=== PATIENT | male | born 1935 | race Caucasian/White ===

== ENCOUNTER 2021-07-19 08:21 | Day surgery (SDC) | payer MEDICARE ==
[~2021-07-19] VITALS: Ht 177.8 cm; Wt 93.5 kg
[2021-07-19 09:08] VITALS: BP 134/82; PULSE 67; TEMP 97.2
[2021-07-19] MEDS ORDERED: NORVASC 5MG5 MG/TAB PO (09:13)
[2021-07-19] MEDS ORDERED: NATURAL C500 MG PO (09:13)
[2021-07-19] MEDS ORDERED: ASPIRIN 81M81 MG/TA2 PO (09:14)
[2021-07-19] MEDS ORDERED: COREG 3.123.125 MG/T PO (09:14)
[2021-07-19] MEDS ORDERED: COZAAR 25MG25 MG/TAB PO (09:15)
[2021-07-19] MEDS ORDERED: LINZESS72 MCG PO (09:15)
[2021-07-19] MEDS ORDERED: MEVACOR10 MG PO (09:16)
[2021-07-19] MEDS ORDERED: GLUCOPHAGE500 MG/TAB PO (09:16)
[2021-07-19] MEDS ORDERED: MULTI-VITAMIN W1 TA1 PO (09:17)
[2021-07-19 10:50] VITALS: BP 91/64; PULSE 58; TEMP 97.1
--- NOTE | 2021-07-19 10:50 | NUR ---
PATIENT TRANSPORTED PER CART FROM GI SUITE TO BAY 1 ACCOMPANIED BY PRO RN. PATIENT AMBULATED FROM CART TO CHAIR WITH SLOW STEADY GAIT. MONITORS APPLIED. VSS ON ROOM AIR. PATIENT TALKS WITH STAFF. IN ROOM VERBAL REPORT RECEIVED. [id number] PATIENT GIVEN PEPSI AND MUFFIN.
[2021-07-19 11:00] VITALS: BP 134/73; PULSE 56
[2021-07-19 11:15] VITALS: BP 140/81; PULSE 52
--- NOTE | 2021-07-19 11:15 | NUR ---
VSS ON ROOM AIR. PATIENT TOLERATED FOOD AND DRINK. DOCTOR SPEAKS WITH PATIENT.
[2021-07-19 11:20] VITALS: BP 111/85; PULSE 59
--- NOTE | 2021-07-19 11:25 | NUR ---
VSS ON ROOM AIR. PATIENT DENIES DISCOMFORT AND NAUSEA. 1126 DISCHARGE INSTRUCTIONS GIVEN VERBAL AND DISCHARGE PACKET GIVEN TO PATIENT. QUESTIONS ANSWERED AND PATIENT VOICED UNDERSTANDING. PATIENT CHANGES INTO STREET CLOTHES. VOICED UNDERSTANDING. 1130 PATIENT DISCHARGED PER WHEEL CHAIR ACCOMPANIED BY AMB RN TO PRIVATE VECHILE DRIVEN BY FAMILY
== END 2021-07-19 11:30 | disposition home or self-care (01) ==
LOC: SDCO 08:21
DX: D12.5 Benign neoplasm of sigmoid colon (principal); Z86.010 Personal history of colon polyps; Z85.038 Personal history of other malignant neoplasm of large intestine; K59.00 Constipation, unspecified; K57.30 Diverticulosis of large intestine without perforation or abscess without bleeding; Z98.0 Intestinal bypass and anastomosis status; Z79.82 Long term (current) use of aspirin; Z79.899 Other long term (current) drug therapy; N40.0 Benign prostatic hyperplasia without lower urinary tract symptoms; E11.22 Type 2 diabetes mellitus with diabetic chronic kidney disease; N18.30 Chronic kidney disease, stage 3 unspecified; I25.10 Atherosclerotic heart disease of native coronary artery without angina pectoris; E78.5 Hyperlipidemia, unspecified; I10 Essential (primary) hypertension; Z85.828 Personal history of other malignant neoplasm of skin
CPT/HCPCS: J2704; J7030

== ENCOUNTER 2023-03-03 05:33 | Day surgery (SDC) | payer MEDICARE ==
[~2023-03-03] VITALS: Ht 172.7 cm; Wt 90.4 kg
[2023-03-03] VITALS (10 sets, daily range): BP systolic 114–155; BP diastolic 70–86; PULSE 58–69; TEMP 96.9–97.4
[~2023-03-03 05:33] MED LIST: ASPIRIN 81M81 MG/TA2 PO; COREG 3.123.125 MG/T PO; COZAAR 25MG25 MG/TAB PO; GLUCOPHAGE500 MG/TAB PO; LINZESS72 MCG PO; MEVACOR10 MG PO; MULTI-VITAMIN W1 TA1 PO; NATURAL C500 MG PO; NORVASC 5MG5 MG/TAB PO
[2023-03-03] MEDS ORDERED: COREG 6.256.25 MG/TA PO (06:31)
[2023-03-03] MEDS ORDERED: LINZESS145CAP PO (06:36)
--- NOTE | 2023-03-03 17:11 | NUR ---
PATIENT BROUGHT TO FLOOR AT APPROXIMATELY 1105. PATIENT DROWSY, BUT AROUSABLE. AQUACELL TO LEFT SHOULDER, CDI. ABDUCTOR SLING TO LEFT SHOULDER. PATIENT DENIES PAIN. POST OPS RUNNING. CALL LIGHT IN REACH.
--- NOTE | 2023-03-03 17:12 | NUR ---
PATIENT HAVING NAUSEA/VOMITING. ZOFRAN ADMINISTERED. PATIENT CLEANED UP, NEW GOWN APPLIED. PATIENT UP WITH THERAPY, WALKED TO BATHROOM AND SAT UP IN CHAIR TO AWAIT DINNER. CALL LIGHT IN REACH.
--- NOTE | 2023-03-03 20:59 | NUR ---
Called Nikia, the PA d/t patient didn't eat his supper and has sliding scale insulin, he's due for 2 units, Nikia ordered to give it.
--- NOTE | 2023-03-03 21:01 | NUR ---
Patient A/O, head to toe assessment done, see shift assessment, denies pain or discomfort at this time, with abductor sling to left shoulder, INT to right wrist, denies further needs, call light and personal items within reach, will continue to monitor.
[2023-03-04 00:24] VITALS: BP 146/75; PULSE 70; TEMP 97.8
--- NOTE | 2023-03-04 00:26 | NUR ---
Patient still complaining of nausea, IV zofran given, patient refused to wear his SCD's at this time.
[2023-03-04 03:52] VITALS: BP 132/62; PULSE 67; TEMP 97.9
[2023-03-04 06:58] LABS: HEMATOCRIT 42.9 % (42.0-52.0); HEMOGLOBIN 15.4 g/dl (13.5-18.0); MEAN CELL VOLUME 92 fl (80.0-100.0); MEAN CORPUSCULAR HEMOGLOBIN 33 pg (27-31); MEAN CORPUSCULAR HGB CONC 36 g/dl (33.0-37.0); MEAN PLATELET VOLUME 10.2 fl (7.4-10.4); PLATELET COUNT 200 K/mm3 (130-400); RED BLOOD COUNT 4.68 M/mm3 (4.20-5.60); REDCELL DISTRIBUTION WIDTH-CV 12.9 % (11.5-14.5)
[2023-03-04 07:10] LABS: CALCIUM 8.3 mg/dL (8.4-10.2); CREATININE, serum 1.14 mg/dL (0.72-1.25); POTASSIUM 4.1 mmol/L (3.5-4.5)
[2023-03-04 07:54] VITALS: BP 129/64; PULSE 65; TEMP 98
--- NOTE | 2023-03-04 09:47 | NUR ---
REVIEWED DISCHARGE WITH PATIENT, QUESTIONS ANSWERED. PT CALLING FAMILY FOR RIDE.
--- NOTE | 2023-03-04 09:58 | NUR ---
PT LEFT UNIT AMBULATORY.
--- NOTE | 2023-03-04 10:15 | NUR ---
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 enjoyed visiting with Millicent and wishing him well and Keeping him in her prayers.
== END 2023-03-04 09:59 | disposition home or self-care (01) ==
LOC: SDCO 05:33 → SURG 11:08 → SDCO 03-04 09:59
PROVIDERS: Orthopaedic Surgery
DX: M19.012 Primary osteoarthritis, left shoulder (principal); R11.2 Nausea with vomiting, unspecified; E11.22 Type 2 diabetes mellitus with diabetic chronic kidney disease; I12.9 Hypertensive chronic kidney disease with stage 1 through stage 4 chronic kidney disease, or unspecified chronic kidney disease; N18.30 Chronic kidney disease, stage 3 unspecified; Z66 Do not resuscitate; I25.10 Atherosclerotic heart disease of native coronary artery without angina pectoris; I25.2 Old myocardial infarction; E78.5 Hyperlipidemia, unspecified; K58.1 Irritable bowel syndrome with constipation; Z85.828 Personal history of other malignant neoplasm of skin; Z95.1 Presence of aortocoronary bypass graft; Z79.84 Long term (current) use of oral hypoglycemic drugs; Z79.899 Other long term (current) drug therapy; Z85.038 Personal history of other malignant neoplasm of large intestine; Z90.49 Acquired absence of other specified parts of digestive tract
CPT/HCPCS: OP; A4619; A9284; C1713; C1776; J0690; J1100; J1815; J2250; J2405; J2550; J2704; J2795; J3010; J7120